=== PATIENT | female | born 1975 | race Caucasian/White ===

== ENCOUNTER 2017-07-03 09:13 | Emergency (ER) | payer BC ==
[~2017-07-03] VITALS: Ht 172.7 cm; Wt 89.1 kg
[2017-07-03] MEDS ORDERED: ZYRTEC10 M3 PO (09:36)
[2017-07-03 10:25] LABS: HEMATOCRIT 43.1 % (37.0-47.0); HEMOGLOBIN 14.4 g/dL (12.5-16.0); MEAN CELL VOLUME 91 fl (78-100); MEAN CORPUSCULAR HEMOGLOBIN 30 pg (27-31); MEAN CORPUSCULAR HGB CONC 33 g/dL (33-37); MEAN PLATELET VOLUME 9.7 fl (7.4-10.4); PLATELET COUNT 235 K/mm3 (130-400); RED BLOOD COUNT 4.73 M/mm3 (4.10-5.30); RED CELL DISTRIBUTION WIDTH 13.1 % (11.5-14.5); WHITE BLOOD COUNT 9.5 K/mm3 (4.8-10.8)
[2017-07-03 10:35] LABS: BAND 1 % (0-10); LYMPHOCYTE 5 % (20-51); MONOCYTE 8 % (3-10); NEUTROPHILS 86 % (42-75)
[2017-07-03 10:39] LABS: ALBUMIN 4.2 g/dL (3.5-5.0); CALCIUM 9.7 mg/dL (8.4-10.2); POTASSIUM 3.9 mmol/L (3.6-5.0); TOTAL BILIRUBIN 0.4 mg/dL (0.2-1.3); TOTAL PROTEIN 7.5 g/dL (6.3-8.2)
[2017-07-03 11:17] LABS: URINE APPEARANCE HAZY; URINE COLOR YELLOW
[2017-07-03 11:18] LABS: PH-URINE 8.5 (5.0 - 8.0); URINE BILIRUBIN NEGATIVE (NEGATIVE); URINE BLOOD NEGATIVE (NEGATIVE); URINE GLUCOSE NEGATIVE (NEGATIVE); URINE KETONE SMALL (NEGATIVE); URINE LEUKOCYTE ESTERASE TRACE (NEGATIVE); URINE MUCUS PRESENT (NOT PRESENT); URINE NITRATE NEGATIVE (NEGATIVE); URINE PROTEIN(semi-quant) TRACE mg/dL (NEGATIVE); URINE UROBILINOGEN NORMAL (NORMAL)
[2017-07-03] MEDS ORDERED: PEPCID 20MG TAB20 MG PO (14:11)
[2017-07-03] MEDS ORDERED: PROTONIX TR40 M1 PO (14:11)
[2017-07-03] MEDS ORDERED: ZOFRAN ODT8 M1 PO (14:19)
[2017-07-03 14:20] VITALS: BP 144/81
== END 2017-07-03 14:26 | disposition home or self-care (01) ==
LOC: ED 09:13
PROVIDERS: Physician Assistant
DX: R10.13 Epigastric pain (principal); R11.0 Nausea; Z88.5 Allergy status to narcotic agent
CPT/HCPCS: J1885; J7120; Q9967

== ENCOUNTER → 2020-05-16 | Outpatient (CLI) | payer BC ==
[~2020-05-16] MED LIST: PEPCID 20MG TAB20 MG PO; PROTONIX TR40 M1 PO; ZOFRAN ODT8 M1 PO; ZYRTEC10 M3 PO
== END ==
LOC: RAD 09:48
DX: M54.16 Radiculopathy, lumbar region (principal)